=== PATIENT | female | born 1985 | race Two or more races ===

== ENCOUNTER 2018-06-03 09:13 | Outpatient (CLI) | payer BC, OTHER ==
[2018-06-03] MEDS ORDERED: FLUT9.9S16 NAS (09:36)
== END 2018-06-03 23:59 | disposition home or self-care (01) ==
LOC: STAR 09:13
PROVIDERS: ATTEND Otolaryngology
DX: Z02.9 Encounter for administrative examinations, unspecified (principal)

== ENCOUNTER 2018-06-07 05:50 | Day surgery (SDC) | payer BC, OTHER ==
[~2018-06-07] VITALS: Ht 160 cm; Wt 69.9 kg
[~2018-06-07 05:50] MED LIST: FLUT9.9S16 NAS
[2018-06-07] MEDS ORDERED: LACTATED RINGERS 1,000 ML IV SCH (06:09)
[2018-06-07] MEDS ORDERED: FENTANYL PF 250 MCG/5ML ONE (06:42)
[2018-06-07] MEDS ORDERED: MIDAZOLAM 1 MG/ML, 2ML ONE (06:42)
[2018-06-07 06:49] LABS: HCG UR SG 1.023 (1.003-1.030)
[2018-06-07] MEDS ORDERED: FLUORESCEIN SODIUM 500 MG/5 ML ONE (07:02)
[2018-06-07] MEDS ORDERED: OXYMETAZOLINE NASAL SPRAY 0.05%, 15ML ONE (07:02)
[2018-06-07] MEDS ORDERED: EPINEPHRINE TOPICAL SOLN 1 MG/ML, 30ML ONE (07:02)
[2018-06-07] MEDS ORDERED: LIDOCAINE 1%-EPI 1:100K, 20ML ONE (07:02)
[2018-06-07] MEDS ORDERED: BACITRACIN OINT 500U/GM, 15 GM ONE (07:02)
[2018-06-07] MEDS ORDERED: HYDROmorphone 2 MG/ML, 1ML IVPush PRN (07:30)
[2018-06-07] MEDS ORDERED: ONDANSETRON 2MG/ML, 2ML IV PRN (07:30)
[2018-06-07] MEDS ORDERED: PROMETHAZINE 25 MG/ML, 1ML IV PRN (07:30)
[2018-06-07] MEDS ORDERED: ACETAMINOPHEN 325 MG TABLET PO PRN (07:30)
[2018-06-07] MEDS ORDERED: hydrALAzine 20 MG/ML, 1ML IV PRN (07:30)
[2018-06-07] MEDS ORDERED: HALOPERIDOL 5 MG/ML IV PRN (07:30)
[2018-06-07] MEDS ORDERED: ONDANSETRON ODT 8 MG PO PRN (07:30)
[2018-06-07] MEDS ORDERED: PROMETHAZINE 25 MG/ML, 1ML IM PRN ×2 (07:30)
[2018-06-07] MEDS ORDERED: MORPHINE SULFATE 4 MG/ML, 1ML IVPush PRN (07:30)
[2018-06-07] MEDS ORDERED: PROMETHAZINE 12.5 MG SUPP PR PRN (07:30)
[2018-06-07] MEDS ORDERED: PROMETHAZINE 25 MG SUPP PR PRN (07:30)
[2018-06-07] MEDS ORDERED: MEPERIDINE/PF 25MG/0.5ML IVPush PRN (07:30)
[2018-06-07] MEDS ORDERED: LABETALOL 5MG/ML, 20ML IV PRN (07:30)
[2018-06-07] MEDS ORDERED: OXYcodone 5 MG/5 ML ORAL.SOL UDC PO PRN (07:30)
[2018-06-07] MEDS ORDERED: CEFAZOLIN 1,000 MG ONE (08:18)
[2018-06-07] MEDS ORDERED: DEXAMETHASONE 4 MG/ML, 1ML ONE (08:18)
[2018-06-07] MEDS ORDERED: GLYCOPYRROLATE 0.2MG/1ML, 5ML ONE (08:18)
[2018-06-07] MEDS ORDERED: NEOSTIGMINE 1 MG/ML, 10ML ONE (08:18)
[2018-06-07] MEDS ORDERED: ROCURONIUM 10MG/ML,5ML ONE (08:18)
[2018-06-07] MEDS ORDERED: ONDANSETRON 2MG/ML, 2ML ONE (08:18)
[2018-06-07] MEDS ORDERED: PROPOFOL 10 MG/ML, 20ML ONE (08:18)
[2018-06-07] MEDS ORDERED: FENTANYL PF 100 MCG/2ML ONE ×3 (08:19→09:32)
[2018-06-07] MEDS ORDERED: OXYcodone 5 MG/5 ML ORAL.SOL UDC ONE (09:32)
[2018-06-07] MEDS: FENTANYL PF 100 MCG/2ML IV PRN ×2 (09:34→09:42)
== END 2018-06-07 11:50 | disposition home or self-care (01) ==
LOC: OUT 05:50
PROVIDERS: ATTEND Otolaryngology
DX: J32.2 Chronic ethmoidal sinusitis (principal); J32.0 Chronic maxillary sinusitis; J01.81 Other acute recurrent sinusitis; Z72.89 Other problems related to lifestyle
CPT/HCPCS: 31253; 31257; 31267; 61782; 81025; 88304; 88311; J0690; J1100; J2250; J2405; J2704; J2710; J3010; J3490